=== PATIENT | female | born 1980 | race Caucasian/White ===

== ENCOUNTER 2024-07-29 18:19 | Emergency (ER) | payer BC ==
[2024-07-29 18:25] VITALS: TEMP 97.6
[2024-07-29] MEDS: DIPH,PERTUS(ACELL)TETVAC-LF 0.5 ML VIAL IM ONE (18:50)
[2024-07-29] MEDS: LIDOCAINE 1% INJ 10MG/ML (20 ML MDV) SQ ONE (18:50)
--- NOTE | 2024-07-29 19:40 | XR ---
EXAMINATION TYPE: XR finger RT DATE OF EXAM: 07/29/2024 7:16 PM CLINICAL INDICATION: Female, 43 years old with history of 5th finger; [facility] COMPARISON: None TECHNIQUE: XR finger RT Frontal, lateral and oblique views were obtained. FINDINGS: Mild hyperextension at the distal interphalangeal joint of the fifth digit. Otherwise, norm al alignment of the visualized joints. No acute osseous pathology is identified. No evidence of sof t tissue swelling. Multifocal degeneration changes with joint space narrowing and osteophyte formatio n. IMPRESSION: 1. No acute osseous pathology. 2. Multifocal osteoarthrosis throughout the joints of the hand.
--- NOTE | 2024-07-29 19:44 | ED ---
Animal Bite HPI - General Chief Complaint: Animal Bite Stated Complaint: R Finger Injury Time Seen by Provider: 07/29/24 18:27 Source: patient Mode of arrival: ambulatory Limitations: no limitations - History of Present Illness Initial Comments: 43-year-old female presenting with chief complaint of dog bite. She broke up a fight between her dog and cat today and was bitten on the right fifth digit. The dog's examinations are up-to-date. She does not member her last tetanus shot was. There is a 2 cm laceration to the fifth digit. She has full range of motion and sensation. - Related Data Previous Rx's Medication Instructions Recorded Amoxic-Pot Clav 875-125Mg 1 tab PO Q12HR 8 Days #16 tab 07/29/24 [Augmentin 875-125] Allergies Allergy/AdvReac Type Severity Reaction Status Date / Time No Known Allergies Allergy Verified 07/29/24 18:25 Review of Systems ROS Statement: Those systems with pertinent positive or pertinent negative responses have been documented in the HPI. ROS Other: All systems not noted in ROS Statement are negative. Past Medical History Past Medical History: No Reported History History of Any Multi-Drug Resistant Organisms: None Reported Past Surgical History: Hysterectomy Past Psychological History: No Psychological Hx Reported Smoking Status: Current every day smoker Past Alcohol Use History: None Reported Past Drug Use History: None Reported, Marijuana General Exam Limitations: no limitations General appearance: alert, in no apparent distress Head exam: Present: atraumatic, normocephalic Eye exam: Present: normal appearance, EOMI Neck exam: Present: normal inspection. Absent: meningismus Respiratory exam: Absent: respiratory distress Cardiovascular Exam: Present: regular rate Neurological exam: Present: alert, oriented X3 Psychiatric exam: Present: normal affect, normal mood Expanded Type of lesion: Present: laceration Course Vital Signs 07/29/24 07/29/24 18:21 19:54 Temperature 97.6 F Pulse Rate 68 74 Respiratory 16 20 Rate Blood Pressure 114/75 103/67 O2 Sat by Pulse 100 100 Oximetry Procedures - Laceration Laceration #1 Consent Obtained: verbal consent Indication: laceration Site: hand (Right fifth digit) Size (cm): 2 Description: linear Depth: simple, single layer Anesthetic Used: lidocaine 1%, without epi Anesthesia Technique: local infiltration Pre-repair: wound explored, irrigated extensively Type of Sutures: nylon Size of Sutures: 4-0 Number of Sutures: 2 Technique: simple, interrupted Patient Tolerated Procedure: well Medical Decision Making - Medical Decision Making Was pt. sent in by a medical professional or institution (ANGIE Garcia, SENIOR QUALITATIVE RESEARCHER, urgent care, hospital, or detention...) When possible be specific @ -No Did you speak to anyone other than the patient for history (EMS, parent, family, police, friend...)? What history was obtained from this source @ -No Did you review nursing and triage notes (agree or disagree)? Why? @ -I reviewed and agree with nursing and triage notes Were old charts reviewed (outside hosp., previous admission, EMS record, old EKG, old radiological studies, urgent care reports/EKG's, detention records)? Report findings @ -No old charts were reviewed Differential Diagnosis (chest pain, altered mental status, abdominal pain women, abdominal pain men, vaginal bleeding, weakness, fever, dyspnea, syncope, headache, dizziness, GI bleed, back pain, seizure, CVA, palpatations, mental health, musculoskeletal)? @ -Differential includes uncomplicated laceration, fracture, tendon injury, vessel injury, this is not an all-inclusive list EKG interpreted by me (3pts min.). @ -As above X-rays interpreted by me (1pt min.). @ -X-ray negative for acute osseous process. CT interpreted by me (1pt min.). @ -None done U/S interpreted by me (1pt. min.). @ -None done What testing was considered but not performed or refused? (CT, X-rays, U/S, labs)? Why? @ -None What meds were considered but not given or refused? Why? @ -None Did you discuss the management of the patient with other professionals (professionals i.e. ANGIE Garcia, SENIOR QUALITATIVE RESEARCHER, lab, RT, psych nurse, director social service, orthopedic nurse, teacher, aerospace engineer officer armament, high risk case manager)? Give summary @ -No Was smoking cessation discussed for >3mins.? @ -No Was critical care preformed (if so, how long)? @ -No Were there social determinants of health that impacted care today? How? (Homelessness, low income, unemployed, alcoholism, drug addiction, transportation, low edu. Level, literacy, decrease access to med. care, long-term, rehab)? @ -No Was there de-escalation of care discussed even if they declined (Discuss DNR or withdrawal of care, Hospice)? DNR status @ -No What co-morbidities impacted this encounter? (DM, HTN, Smoking, COPD, CAD, Cancer, CVA, ARF, Chemo, Hep., AIDS, mental health diagnosis, sleep apnea, morbid obesity)? @ -None Was patient admitted / discharged? Hospital course, mention meds given and route, prescriptions, significant lab abnormalities, going to OR and other pertinent info. @ -43-year-old female presenting with chief complaint of dog bite. This is from her dog is up-to-date on his vaccinations. Her tetanus will be updated today. 2 cm laceration to the right fifth digit. 2 sutures were used to loosely approximate the skin after thoroughly irrigating the wound. Patient was started on Augmentin. Educated on wound care and signs of infection. Discharged home. Follow-up with PCP. Report back to ER with any new or worsening symptoms. Discussed return parameters and answered all questions. Patient conveyed verbal understanding and agreed to the plan. I discussed this case in detail with my attending Dr. Virk Undiagnosed new problem with uncertain prognosis? @ -No Drug Therapy requiring intensive monitoring for toxicity (Heparin, Nitro, Insulin, Cardizem)? @ -No Were any procedures done? @ -Laceration repair Diagnosis/symptom? @ -Dog bite Acute, or Chronic, or Acute on Chronic? @ -Acute Uncomplicated (without systemic symptoms) or Complicated (systemic symptoms)? @ -Uncomplicated Side effects of treatment? @ -No Exacerbation, Progression, or Severe Exacerbation? @ -No Poses a threat to life or bodily function? How? (Chest pain, [place], [place], pneumonia, PE, COPD, DKA, ARF, appy, cholecystitis, CVA, Diverticulitis, Homicidal, Suicidal, threat to staff... and all critical care pts) @ -No Disposition Clinical Impression: Dog bite Disposition: HOME SELF-CARE Condition: Good Instructions (If sedation given, give patient instructions): Animal Bite (ED) Additional Instructions: Follow-up with PCP. Report back to ER with any new or worsening symptoms. Keep the wound clean dry and covered. Wash regularly with soap and water. Avoid fully submerging the wound in water for prolonged periods of time. Monitor for signs of infection, including but not limited to redness, swelling, warmth, tenderness, discharge, fever. Sutures may be removed in 10-14 days. Take antibiotics as prescribed Prescriptions: Amoxic-Pot Clav 875-125Mg [Augmentin 875-125] 1 tab PO Q12HR 8 Days #16 tab Is patient prescribed a controlled substance at d/c from ED?: No Referrals: Abbie Friend MD [Primary Care Provider] - 1-2 days Time of Disposition: 19:44
[2024-07-29] MEDS: AMOXIC-POT CLAV 875MG STARTER PACK 2 TAB BTL PO STA (19:50)
[2024-07-29 19:55] VITALS: BP 103/67; PULSE 74; RESP 20
== END 2024-07-29 20:04 | disposition home or self-care (01) ==
LOC: EC 18:19
DX: S61.216A Laceration without foreign body of right little finger without damage to nail, initial encounter (principal); F17.200 Nicotine dependence, unspecified, uncomplicated; Z23 Encounter for immunization; W54.0XXA Bitten by dog, initial encounter
CPT/HCPCS: 73140; 90715; 90471; 12001; 99283; J2001